=== PATIENT | female | born 1970 | race Caucasian/White ===

== ENCOUNTER 2018-11-24 15:27 | Outpatient (CLI) | payer BC ==
--- NOTE | 2018-11-24 16:00 | MMO ---
Bilateral MAMMO Bilat Screen [facility]. CLINICAL HISTORY: Patient is 48 years old and is seen for screening. The patient has the following family history of breast cancer: maternal aunt and paternal aunt. The patient has no personal history of cancer. VIEWS: The views performed were: bilateral craniocaudal with tomosynthesis and bilateral mediolateral oblique with tomosynthesis. MAMMOGRAM FINDINGS: There are scattered fibroglandular densities. There are no suspicious masses, suspicious calcifications, or new areas of architectural distortion. IMPRESSION: THERE IS NO MAMMOGRAPHIC EVIDENCE OF MALIGNANCY. A ROUTINE FOLLOW-UP MAMMOGRAM IN 1 YEAR IS RECOMMENDED. THE RESULTS OF THIS EXAM WERE SENT TO THE PATIENT. ACR BI-RADS Category 1 - Negative MAMMOGRAPHY NOTE: 1. A negative mammogram report should not delay a biopsy if a dominant of clinically suspicious mass is present. 2. Approximately 10% to 15% of breast cancers are not detected by mammography. 3. Adenosis and dense breasts may obscure an underlying neoplasm. Reported by: ANGELLA OCAMPO MD Electonically Signed: [id number]
== END 2018-11-24 15:28 | disposition home or self-care (01) ==
LOC: BICMAMMO 15:27
PROVIDERS: ATTEND Family Medicine
DX: Z12.31 Encounter for screening mammogram for malignant neoplasm of breast (principal); Z80.3 Family history of malignant neoplasm of breast
CPT/HCPCS: 77063; 77067

== ENCOUNTER 2020-03-09 07:02 | Outpatient (CLI) | payer BC ==
[2020-03-09 18:39] LABS: Hemoglobin 13.5 g/dL (12.0-16.0); Mean Corpuscular Volume 93.8 fl (80.0-100.0); Mean Platelet Volume 9.8 fl (7.4-10.4); Platelet Count 284 10x3/uL (130-400); RBC Distribution Width 12.2 % (11.5-14.5); Red Blood Cell (RBC) Count 4.36 10x6/uL (3.90-5.20); White Blood Cell (WBC) Count 8.7 10x3/uL (4.5-11.0)
[2020-03-09 18:41] LABS: BHCG - Serum Negative (NEGATIVE)
[2020-03-09 18:42] LABS: Pregs Control Background? CLEAR/WHITE (CLR/WHITE); Pregs Control Bar Appear? YES (CONTROL BAR)
[2020-03-09 18:46] LABS: ALT (SGPT) 15 U/L (8-55); AST (SGOT) 20 U/L (5-34); Albumin 4.5 g/dL (3.5-5.0); Alkaline Phosphatase 45 U/L (40-110); Anion Gap 13 mmol/L (10-20); BUN (Urea Nitrogen) 13 mg/dL (7.0-18.7); Bilirubin, Direct 0.2 mg/dL (0.1-0.3); Bilirubin, Total 0.4 mg/dL (0.2-1.2); Calc. Creatinine Clearance 0 mL/min (70-130); Calcium 9.2 mg/dL (7.8-10.44); Carbon Dioxide 28 mmol/L (22-29); Chloride 101 mmol/L (98-107); Estimated GFR-MDRD 72; Glucose 70 mg/dL (70-105); Potassium 4.2 mmol/L (3.5-5.1); Protein, Total 6.9 g/dL (6.0-8.3); Sodium 138 mmol/L (136-145)
[2020-03-10 09:27] LABS: SARS-CoV-2 MS2 Positive; SARS-CoV-2 N Gene Negative; SARS-CoV-2 S Gene Negative; SARS-CoV-2 by NAA Not Detected (NotDetected); SARS-CoV-2 orf1ab Negative
== END 2020-03-09 07:03 | disposition home or self-care (01) ==
LOC: LABBT 07:02
PROVIDERS: ATTEND Student in an Organized Health Care Education/Training Program
DX: Z01.812 Encounter for preprocedural laboratory examination (principal); Z20.828 Contact with and (suspected) exposure to other viral communicable diseases; N93.9 Abnormal uterine and vaginal bleeding, unspecified; N39.3 Stress incontinence (female) (male)
CPT/HCPCS: 80048; 80076; 84703; 85027; 87635; U0003

== ENCOUNTER 2020-03-14 11:04 | Day surgery (SDC) | payer BC ==
[2020-03-11 12:57] VITALS: BMI 30.2
[~2020-03-14 11:04] MED LIST: Dexamethasone 20 MG/5 ML VIAL ONE; Glycopyrrolate 0.2 MG/ML 5 ML SYRINGE ONE; Lidocaine 1% PF 5 ML VIAL ONE; Ondansetron PF 4 MG/2 ML Vial ONE; PHENYLEPHRINE-NS 100 MCG/ML 10 ML SYRINGE ONE; PROPOFOL 200 MG/20 ML VIAL ONE; Rocuronium Bromide 10 MG/ML (10ML VIAL) ONE
[2020-03-14] MEDS ORDERED: Famotidine/PF 20 mg/2ml Vial ONE (11:32)
[2020-03-14] MEDS ORDERED: Gabapentin 300 MG CAP ONE (11:32)
[2020-03-14] MEDS ORDERED: CeleCOXIB 100 MG CAP ONE (11:32)
[2020-03-14] MEDS ORDERED: Fentanyl 100 MCG/2 ML VIAL ONE ×3 (12:43→17:14)
[2020-03-14] MEDS ORDERED: Midazolam HCl 2 mg/2 ml Vial ONE ×2 (12:43→13:04)
[2020-03-14] MEDS ORDERED: HYDROmorphone 0.5 MG/0.5 ML SYRINGE ONE (12:44)
[2020-03-14] MEDS ORDERED: Lidocaine 2% Jelly 5 ML TUBE ONE (12:44)
[2020-03-14] MEDS ORDERED: Lidocaine 1% w/Epinephrine 1:100K 20 ML VIAL ONE (12:49)
[2020-03-14] MEDS ORDERED: Bupivacaine PF 0.5% 30 ML VIAL ONE (12:49)
[2020-03-14] MEDS ORDERED: HYDROcodone/Acetaminophen 5/325 mg Tablet ONE (16:03)
--- NOTE | 2020-03-14 18:58 | OP ---
DATE OF PROCEDURE: 03/14/2020 PREOPERATIVE DIAGNOSES: 1. Abnormal uterine bleeding. 2. Pelvic pain. 3. Incomplete uterovaginal prolapse. 4. Stress urinary incontinence. POSTOPERATIVE DIAGNOSES: 1. Abnormal uterine bleeding. 2. Pelvic pain. 3. Incomplete uterovaginal prolapse. 4. Stress urinary incontinence. PROCEDURES PERFORMED: 1. Robotic-assisted total laparoscopic hysterectomy. 2. Bilateral salpingectomy. 3. Uterosacral ligament suspension. 4. Midurethral sling. 5. Cystoscopy. ANESTHESIA: General endotracheal. MEMS ENGINEER SURGEON: Maribel Gupta PA-C ESTIMATED BLOOD LOSS: 30 mL. IVF: 1 L of crystalloid. URINE OUTPUT: 100 mL of clear urine. COMPLICATIONS: None. DRAINS: Cisneros catheter. PATHOLOGY: Uterus, cervix, and bilateral fallopian tubes. FINDINGS: An 8 cm uterus. Normal-appearing cervix and vaginal mucosa. Normal-appearing fallopian tubes and ovaries. Some old white scarring just lateral to both uterosacral ligaments from old endometriosis. The left ovary was slightly adherent to the pelvic sidewall. On cystoscopic exam, there were no masses or lesions in the bladder. There was no lacerations, suture material, or mesh within the bladder. Ureters were noted to efflux bilaterally. DESCRIPTION OF PROCEDURE: The patient was taken to the operating room where general anesthesia was obtained without difficulty. The patient was prepped and draped in a sterile fashion in a dorsal lithotomy position. A Cisneros catheter was placed in the bladder. A speculum was placed in the vagina. The anterior lip of the cervix was grasped with single-tooth tenaculum. The cervix was then progressively dilated with Bakari dilators and the uterus sounded to 8 cm. The GABRIEL manipulator was assembled with an 8 cm tip and a 4 cm colpotomizer ring. The manipulator was inserted into the uterus and the ring was advanced to fit snugly around the cervix. Speculum and tenaculum were removed out of the vagina. Legs were placed in low lithotomy. Attention was turned to the abdomen. A mixture of 0.5% Marcaine plain, 1% lidocaine with epinephrine was infiltrated into the umbilicus and a 12-mm skin incision was made. The Veress needle was passed into the abdomen, noting an opening pressure of 0 mmHg and pneumoperitoneum was obtained. The Veress needle was removed and a 12-mm trocar was advanced into the abdomen and confirmed placement with robotic camera. There were some omental adhesions just inferior to the umbilicus that were noted upon entry. The right and left lower quadrant 8-mm robotic trocars were placed under direct visualization after infiltrating with anesthetic solution. A right upper quadrant 11 mm port was also placed under direct visualization after infiltrating with anesthetic. The steep Trendelenburg was obtained. The robot was then docked. The right robotic arm contained monopolar scissors. Left robotic arm contained a fenestrated bipolar. The surgeon console then took control. The left fallopian tube was grasped and elevated. The mesosalpinx was sequentially cauterized with the fenestrated and incised with scissors until the medial portion was met, that was cauterized with the fenestrated across the tube and then incised and the tube was removed out of the abdomen. The utero-ovarian was cauterized in the midportion and incised with the scissors as well as the round ligament and this was incised, allowing the anterior and posterior leaf of the broad ligament to open up. The posterior leaf of the broad ligament was incised down to the level of the uterosacral and the retroperitoneum was bluntly brushed away from the uterine arteries and veins. The scissors were also used to achieve hemostasis of small retroperitoneal bleeders. The anterior leaf of the broad ligament was incised down to the level of the bladder flap and the bladder flap was then created, undermining the vesicouterine peritoneum with the fenestrated and incising with the scissors. Further skeletonization of the uterine vessels was performed and the vessels were then cauterized just above the level of the internal cervical os. Attention was then turned to the right side. The right fallopian tube was grasped and elevated. The mesosalpinx was cauterized and incised until the medial portion was met. The fallopian tube was then clamped across with the fenestrated, cauterized and then incised with scissors on cautery. Utero-ovarian on the right side was also cauterized with the fenestrated and incised with scissors and taken down to the level of the round ligament, that was cauterized and incised. The posterior leaf of the broad ligament on the right side was then incised down to the uterosacral. The ureter was noted running in the pelvic sidewall laterally. The anterior leaf of the broad ligament was also incised down to the bladder flap and the uterine vessels were skeletonized, allowing the retroperitoneum to be dissected away and allowing the ureter to fall further laterally from the point of the uterine vessels. The bladder flap was then further created by scoring on the pubocervical fascia and incising the adventitia off the pubocervical fascia down distally below the level of the colpotomizer ring. This was taken down adequately, so the suspension could be performed. Hemostasis was achieved as the bladder pillars with the fenestrated. The uterine vessels were then cauterized multiple times at the level of the internal cervical os. Attention was then turned to the uterosacral ligaments where the uterus was sharply anteverted. A releasing incision was made with the scissors on cautery just lateral to the uterosacral and the middle 2/3 of the ligament to prevent ureteral kinking. This was done bilaterally. At that point, colpotomy was performed. When the uterine vessels were met, the vessels were incised above the level of the internal cervical os to allow the pedicle to protrude out of the retroperitoneum in order to ensure hemostasis. This was done bilaterally. The colpotomy was then completed circumferentially and the uterus was placed into the vagina. The scissors were traded out for the needle driver license reviewing officer. The vaginal cuff was copiously irrigated and hemostasis was achieved with the fenestrated. The vaginal cuff was then closed with 2-0 barbed Stratafix suture in a running fashion and run back for a second layer, incorporating vaginal mucosa and posterior peritoneum in each bite. Hemostasis was noted. At that time, a sponge stick was placed into the vagina into the posterior compartment and used to highlight the uterosacral vessels and oh Ethibond was then used to plicate the uterosacral ligaments bilaterally and then this was run through the posterior and anterior vaginal benito and cinched down. This was done bilaterally. At that time, the needles were cut and removed out of the abdomen and irrigation was performed of the vaginal cuff and all the surgical sites. Low pressure check was performed and hemostasis was noted to be excellent. The robot was undocked. Pneumoperitoneum was released and all instruments removed out of the abdomen. The fascia of the umbilical port was closed with 0 Vicryl in a [id number] fashion. The skin was closed with 4-0 Monocryl in a subcuticular fashion. Dermabond was applied. Attention was then turned to the vagina. The sponge stick was removed out of the vagina. The weighted speculum was placed and the midurethra was grasped with 2 Allis clamps. The suburethral space was then infiltrated with anesthetic mixture and a #11 blade was used to incise along the midurethra. Metzenbaum was then used to dissect out the suburethral and subpubic space bilaterally. The legs were then placed in the mid lithotomy position and the exit sites of the sling were marked and hydrodissection was performed with sterile saline of both exit sites. At that time, the Cisneros catheter was deflated. A guidewire was placed into the catheter and the bladder was deviated to the patient's right side. The [employer] Advantage Fit midurethral sling was opened and assembled and the sling was placed bilaterally without difficulty and the sheath was secured at the pubic symphysis. Upon placing the contralateral side, the bladder was then deviated to the other side. The Cisneros catheter was then removed out of the bladder and a 70-degree cystoscope was placed into the bladder and the bladder was distended. At that time, the bladder was noted to be within normal limits. There was no mesh within the bladder or the blue sheath from the mesh. There was no suture or laceration from the previous procedures and the ureters were noted to efflux bilaterally. The cystoscope was then removed. The Cisneros catheter was placed. The bladder was decompressed and the sling was then tightened by allowing the pharmacy technician assistant to pull up on the sheath at the pubic symphysis while I held a Anderson scissors in between the urethra and the mesh tape and the mesh was appropriately tightened and the sheath was then completely removed. Irrigation was performed of the vaginal incision and the mesh was cut at the pubic symphysis and Dermabond was applied to these puncture sites. The vaginal incision was then closed with 2-0 Vicryl in a running locking fashion, noting excellent hemostasis. All instruments removed out of vagina. The patient tolerated the procedure well. Sponge, lap, and needle counts correct x2. The patient was taken to recovery room in stable condition. The patient received Ancef 2 g prior to the procedure. Job ID: [id number]
[2020-03-14] MEDS ORDERED: HYDROcodone/Acetaminophen 5/325 mg Tablet PO PRN ×2 (20:46→20:47)
[2020-03-14] MEDS ORDERED: Fentanyl 100 MCG/2 ML VIAL SLOW IVP PRN (20:48)
[2020-03-14] MEDS ORDERED: Losartan 25 MG TAB PO SCH (21:00)
[2020-03-14] MEDS ORDERED: Spironolactone 25 MG TAB PO SCH (21:00)
[2020-03-14] MEDS ORDERED: DULoxetine 30 MG CAP PO SCH (21:00)
[2020-03-14] MEDS: Ibuprofen 800 MG TAB PO SCH (21:00)
[2020-03-14] MEDS: Nitrofurantoin Macrocrystal 50 MG CAP PO SCH (21:00)
[2020-03-14] MEDS ORDERED: Montelukast Sodium 10 mg Tablet PO SCH (21:00)
[2020-03-15] MEDS ORDERED: Levothyroxine Sodium 112 MCG TAB PO SCH (06:00)
[2020-03-15] MEDS ORDERED: Mometasone 200 MCG/Formoterol 5 MCG 120 PUFF INHALER INH SCH (06:30)
[2020-03-15] MEDS: Ibuprofen 800 MG TAB PO SCH (10:18)
[2020-03-15] MEDS: Nitrofurantoin Macrocrystal 50 MG CAP PO SCH (10:19)
[2020-03-15] MEDS ORDERED: HYDROcodone/Acetaminophen 5/325 mg Tablet PO SCH (11:15)
[2020-03-15 11:59] VITALS: BP 103/56; TEMP 98.3
[2020-03-15] MEDS ORDERED: HYDROcodone/Acetaminophen 5/325 mg Tablet PO PRN (12:51)
--- NOTE | 2020-03-15 12:57 | PDOC.EVN ---
Event Note - Event Note Event Note: POD1 S: pain controlled, saul reg diet, ambulating without difficulty. O: VSSAF Output overnight 1L NAD unlabored resp soft/nd/nttp/inc c/d/i A) POD1 s/p RATLH BS USLS, MUS, cysto P) Voiding trial this am, then DC home with outpatient follow up.
== END 2020-03-15 15:42 | disposition home or self-care (01) ==
LOC: SDC 11:04 → 3SE 18:59 → SDC 03-15 15:42
PROVIDERS: ATTEND Student in an Organized Health Care Education/Training Program
PROC: 0TSD0ZZ Reposition Urethra, Open Approach (ICD-10-PCS; principal; 2020-03-14)
PROC: 0UT74ZZ Resection of Bilateral Fallopian Tubes, Percutaneous Endoscopic Approach (ICD-10-PCS; principal; 2020-03-14)
PROC: 0UT94ZZ Resection of Uterus, Percutaneous Endoscopic Approach (ICD-10-PCS; principal; 2020-03-14)
DX: N81.2 Incomplete uterovaginal prolapse (principal); D25.9 Leiomyoma of uterus, unspecified; N80.0 Endometriosis of uterus; N88.8 Other specified noninflammatory disorders of cervix uteri; N83.8 Other noninflammatory disorders of ovary, fallopian tube and broad ligament; N39.3 Stress incontinence (female) (male); I10 Essential (primary) hypertension; J45.909 Unspecified asthma, uncomplicated; G43.909 Migraine, unspecified, not intractable, without status migrainosus; E03.9 Hypothyroidism, unspecified; F32.9 Major depressive disorder, single episode, unspecified; F41.9 Anxiety disorder, unspecified; Z79.2 Long term (current) use of antibiotics; Z79.899 Other long term (current) drug therapy; Z88.1 Allergy status to other antibiotic agents; Z88.5 Allergy status to narcotic agent; Z91.040 Latex allergy status
CPT/HCPCS: 36415; 86850; 86900; 86901; 88307; C1781; J0690; J1100; J1170; J2250; J2405; J2704; J3010; S0020; S0028

== ENCOUNTER 2020-05-16 22:24 | Emergency (ER) | payer BC ==
[2020-05-16] MEDS ORDERED: diphenhydrAMINE 50 MG/ML VIAL ONE (22:58)
[2020-05-16] MEDS ORDERED: Ketorolac Tromethamine 30 MG/ML VIAL ONE (22:58)
[2020-05-16] MEDS ORDERED: Metoclopramide HCl 10 MG/2 ML VIAL ONE (22:58)
== END 2020-05-17 01:30 | disposition home or self-care (01) ==
LOC: ERS 22:24
DX: U07.1 COVID-19 (principal)
CPT/HCPCS: 96365; 96366; 96375; J1200; J1885; J2765

== ENCOUNTER 2023-06-13 09:19 | Outpatient (CLI) | payer BC, OTHER | END 2023-06-13 09:20 | disposition home or self-care (01) | LOC: RAD 09:19 | PROVIDERS: ATTEND Internal Medicine | DX: R06.00 Dyspnea, unspecified (principal) | CPT/HCPCS: 71046 ==